=== PATIENT | female | born 1970 | race Hispanic/Latino ===

== ENCOUNTER 2017-07-26 12:54 | Emergency (ER) | payer MEDICAID ==
--- NOTE | 2017-07-26 14:31 | XRay Report ---
LEFT SHOULDER: Trauma, pain Routine views demonstrate normal bony and soft tissue structures with normal joint alignment of the shoulder. IMPRESSION: Normal study.
--- NOTE | 2017-07-26 17:17 | Emergency Department Report ---
Upper Extremity - HPI Chief Complaint: Shoulder Injury Stated Complaint: FALL .LEFT SHOULDER INJURY, TOE INJURY Time Seen by Provider: 07/26/17 17:16 Upper Extremity: Left Shoulder (shoulder pain from fall in 1 month ago) Occurred When: >5 Days (1 month) Mechanism: Fall Severity: moderate (6 out of 10) Symptoms: Yes Pain with Movement (left shoulder), Yes Limited Range of Movement (shoulder, left), No Deformity, No Numbness, No Weakness, No Swelling, No Bruising/Ecchymosis, No Laceration or Abrasion Other History: Patient reports that she has been having shoulder pain for one month since she fell and hit her left shoulder. She says she did not seek any medical care. Denies any numbness or tingling in or radiation of pain. Denies any fever or chills. She said it hurt when she moves her left shoulder. Denies any chest pain or shortness of breath. Blood pressure is elevated and she denies any history of high blood pressure. ED Review of Systems ROS: Stated complaint: FALL .LEFT SHOULDER INJURY, TOE INJURY Other details as noted in HPI Comment: All other systems reviewed and negative Constitutional: no symptoms reported Respiratory: no symptoms reported Cardiovascular: denies: chest pain, palpitations, edema, syncope Gastrointestinal: denies: abdominal pain, nausea Musculoskeletal: arthralgia. denies: back pain, joint swelling, myalgia Skin: denies: rash Neurological: denies: headache, weakness, numbness, paresthesias, confusion, abnormal gait, vertigo ED Past Medical Hx - Past Medical History Previous Medical History?: Yes Additional medical history: Vaginal delivery x 5 - Surgical History Past Surgical History?: Yes Additional Surgical History: Tubaligation - Family History Family history: no significant - Social History Smoking Status: Current Every Day Smoker Substance Use Type: Non Opiate Pain - Medications Home Medications: Home Medications Medication Instructions Recorded Confirmed Last Taken Type traMADol [Ultram] 50 mg PO Q6HR PRN #20 tablet 07/26/17 Unknown Rx Upper Extremity Exam - Exam General: Vital signs noted. No distress. Alert and acting appropriately. This is a 47-year-old female well-nourished well-developed in no acute distress Head and Torso: No HEENT Abnormality (Normal exam), No Neck Tenderness (Normal exam), No Chest/Lungs Abnormality (Normal exam), No Abdominal Tenderness ( Normal exam), No Back Tenderness (Normal exam) Shoulder Exam: Yes Normal Range of Motion in Shoulder (patient with full range of motion to both shoulders but she reports that it's painful to left shoulder with active range of motion), No Shoulder Tenderness, No Clavicle Tenderness, No Shoulder Deformity, No AC Joint Tenderness Arm Exam: No Arm/Humerus Tenderness, No Arm Deformity Elbow: Yes Normal Range of Motion in Elbow, No Elbow Tenderness, No Elbow Deformity Forearm: No Forearm Tenderness, No Forearm Deformity, No Pain with Pronation, No Pain with Supination Wrist: Yes Normal ROM in Wrist, No Wrist Tenderness, No Wrist Deformity, No Snuffbox Tenderness, No Pain with Axial Thumb Compression Hand: Yes Normal ROM in Digit(s), No Hand Tenderness, No Hand Deformity, No Digit Tenderness, No Digit(s) Deformity, No Tendon Dysfunction CMS Exam: Yes Normal Distal Pulses, Yes Normal Capillary Refill, Yes Normal Distal Sensation, No Broken Skin ED Course Vital Signs 07/26/17 13:45 Temperature 98.3 F Pulse Rate 100 H Respiratory 18 Rate Blood Pressure 188/106 O2 Sat by Pulse 99 Oximetry Vital Signs 07/26/17 07/26/17 13:45 18:26 Temperature 98.3 F Pulse Rate 100 H 84 Respiratory 18 Rate Blood Pressure 188/106 Blood Pressure 164/90 [Left] O2 Sat by Pulse 99 Oximetry - Reevaluation(s) Reevaluation #1: 07/26/17 18:32 Patient stable throughout ED stay. Blood pressure is better but still elevated. Patient remained asymptomatic. X-ray of left shoulder is normal ED Medical Decision Making - Radiology Data Radiology results: report reviewed X-ray left shoulder shows no acute bony abnormality. Critical care attestation.: If time is entered above; I have spent that time in minutes in the direct care of this critically ill patient, excluding procedure time. ED Disposition Clinical Impression: Arthralgia of left shoulder region, Elevated BP without diagnosis of hypertension Disposition: - TO HOME OR SELFCARE Is pt being admited?: No Does the pt Need Aspirin: No Condition: Stable Instructions: Arthralgia (ED), Heart Healthy Diet (ED), DASH Eating Plan (ED), Hypertension (ED) Additional Instructions: Please follow up with orthopedic Dr. Castaneda for further evaluation of left shoulder pain that has been ongoing for 1 month. You probably will be need an MRI to evaluate rotator cuff. Take Ultram as prescribed but please do not drive or arm. Heavy machinery while taking this medication as it causes drowsiness Your blood pressure was elevated in the emergency room today. Please keep a log a few blood pressure and record and take to primary care visit with you. Follow up with primary care in 5 days and if you do not have a primary care doctor he can follow up at [facility]. Please call and schedule an appointment. Prescriptions: traMADol [Ultram] 50 mg PO Q6HR PRN #20 tablet PRN Reason: Pain Referrals: KEYONA CASTANEDA MD [Staff Physician] - 07/28/17 [facility] [Outside] - 07/31/17 Forms: Work/School Release Form(ED)
[2017-07-26 18:27] VITALS: BP 164/90
== END 2017-07-26 19:35 | disposition home or self-care (01) ==
LOC: ED 12:54
DX: M25.512 Pain in left shoulder (principal); R03.0 Elevated blood-pressure reading, without diagnosis of hypertension; F17.200 Nicotine dependence, unspecified, uncomplicated

== ENCOUNTER 2017-12-21 10:03 | Emergency (ER) | payer MEDICAID ==
--- NOTE | 2017-12-21 12:15 | XRay Report ---
LEFT FOOT, 3 views: History: Injury, pain and swelling The bony architecture is intact. Bony alignment is normal. No soft tissue abnormalities are seen. The joint spaces appear preserved. IMPRESSION: Normal left foot.
--- NOTE | 2017-12-21 13:52 | Emergency Department Report ---
HPI - General Chief Complaint: Extremity Injury, Lower Time Seen by Provider: 12/21/17 12:48 - HPI HPI: Patient is a 47-year-old female who presents to ED complaining of left foot pain patient states Monday night she was going out her back door when she missed 2 steps and thinks she twisted her foot. Patient states she has been icing it at home and twisted in a Emery wrap. Patient states pain with certain movements of the foot. She denies hitting her head, loss of consciousness or falling ED Past Medical Hx - Past Medical History Previous Medical History?: No Additional medical history: Vaginal delivery x 5 - Surgical History Past Surgical History?: Yes Additional Surgical History: Tubaligation - Social History Smoking Status: Current Every Day Smoker Substance Use Type: Marijuana - Medications Home Medications: Home Medications Medication Instructions Recorded Confirmed Last Taken Type traMADol [Ultram] 50 mg PO Q6HR PRN #20 tablet 07/26/17 Unknown Rx Cyclobenzaprine [Flexeril] 10 mg PO TID PRN #20 tablet 12/21/17 Unknown Rx Naproxen [Naprosyn] 500 mg PO BID #20 tablet 12/21/17 Unknown Rx ED Review of Systems ROS: Stated complaint: LEFT FOOT PAIN Other details as noted in HPI Constitutional: denies: chills, fever Eyes: denies: eye pain, eye discharge, vision change ENT: denies: ear pain, throat pain Respiratory: denies: cough, shortness of breath, wheezing Cardiovascular: denies: chest pain, palpitations Endocrine: no symptoms reported Gastrointestinal: denies: abdominal pain, nausea, diarrhea Genitourinary: denies: urgency, dysuria, discharge Musculoskeletal: denies: back pain, joint swelling, arthralgia Skin: denies: rash, lesions Neurological: denies: headache, weakness, paresthesias Psychiatric: denies: anxiety, depression Hematological/Lymphatic: denies: easy bleeding, easy bruising Physical Exam - Physical Exam Vital Signs: Vital Signs 12/21/17 10:57 Temperature 98.4 F Pulse Rate 111 H Respiratory 12 Rate Blood Pressure 184/115 O2 Sat by Pulse 100 Oximetry Physical Exam: GENERAL: Alert and oriented x3, no apparent distress, Normal Gait, atraumatic. HEAD: Head is normocephalic and a-traumatic. LUNGS: Symetrical with respiration, No wheezing, no rales or crackles, CTAB. HEART: S1, S2 present, regular rate and rhythm without murmur, no rubs, no gallops. Non tender to palpation EXTREMITIES/MUSCULOSKELETAL: No cyanosis, clubbing, rash, lesions or edema. Full ROM bilaterally. pedal Pulses 2+ bilaterally. LE 5+ strength bilaterally , no swelling of the ankle or foot joint. Full range of motion of the left foot , no laceration, patient able to apply pressure to the foot without any pain. Mild tenderness to palpation of the anterior lateral aspect of the left foot NEUROLOGIC: The patient is cooperative with no focal neurologic deficits. Normal speech. Normal sensation in bilateral upper and lower extremities, No loss of sensation, SKIN: Warm and dry, No lesions, No ulceration or induration present. ED Course Vital Signs 12/21/17 10:57 Temperature 98.4 F Pulse Rate 111 H Respiratory 12 Rate Blood Pressure 184/115 O2 Sat by Pulse 100 Oximetry ED Medical Decision Making - Radiology Data Radiology results: report reviewed, image reviewed cc: ED DOC, MD Fluoro Time In Minutes: LEFT FOOT, 3 views: History: Injury, pain and swelling The bony architecture is intact. Bony alignment is normal. No soft tissue abnormalities are seen. The joint spaces appear preserved. IMPRESSION: Normal left foot. Transcribed By: TTR Dictated By: ALYSSA HERNADEZ JR, MD Electronically Authenticated By: ALYSSA HERNADEZ JR, MD Signed Date/Time: 12/21/17 1207 - Medical Decision Making 47-year-old female presents to ED with left foot sprain ED course: Patient received x-ray in ED. x-ray shows no abnormality normal x- ray findings I discussed his findings with the patient Vital signs are normal patient is in no acute distress. Blood pressure elevated while in ED. Patient denies any history of hypertension. She denies headache, blurry vision, chest pain or any other symptoms I scars with the patient and she is given need further management and assessment for diagnoses Discussed with patient follow-up with primary care physician. Discussed the patient and take medications as prescribed. Patient has no neurological deficit. Patient is alert and oriented 3 and understands all instructions given. I discussed the patient and she starts to experience any new or worsening onset of symptoms to return to ED immediately Discussed drowsiness effect of Flexeril makes her drowsy and not to operate machinery while taking flexeril Critical care attestation.: If time is entered above; I have spent that time in minutes in the direct care of this critically ill patient, excluding procedure time. ED Disposition Clinical Impression: Foot sprain Qualifiers: Encounter type: initial encounter Laterality: left Qualified Code(s): S93.602A - Unspecified sprain of left foot, initial encounter Strain of foot, left Qualifiers: Encounter type: initial encounter Qualified Code(s): S96.912A - Strain of unspecified muscle and tendon at ankle and foot level, left foot, initial encounter Disposition: TO HOME OR SELFCARE Is pt being admited?: No Does the pt Need Aspirin: No Condition: Stable Instructions: Arthralgia (ED), Ankle Exercises (GEN), RICE Therapy (ED) Additional Instructions: Make sure to follow up with the primary care physician as discussed. Take all your medications as you've been prescribed. If you have any worsening symptoms or develop new symptoms please return to ED immediately. Prescriptions: Cyclobenzaprine [Flexeril] 10 mg PO TID PRN #20 tablet PRN Reason: Muscle Spasm Naproxen [Naprosyn] 500 mg PO BID #20 tablet Referrals: PRIMARY CARE, [Primary Care Provider] - 3-5 Days Forms: Work/School Release Form(ED) Time of Disposition: 13:58
[2017-12-21 14:22] VITALS: BP 181/112
== END 2017-12-21 14:31 | disposition home or self-care (01) ==
LOC: ED 10:03
DX: S96.912A Strain of unspecified muscle and tendon at ankle and foot level, left foot, initial encounter (principal); S93.602A Unspecified sprain of left foot, initial encounter; F17.200 Nicotine dependence, unspecified, uncomplicated; X58.XXXA Exposure to other specified factors, initial encounter; Y93.89 Activity, other specified; Y92.89 Other specified places as the place of occurrence of the external cause; Y99.8 Other external cause status

== ENCOUNTER 2020-04-22 13:10 | Emergency (ER) | payer SELFPAY ==
[2020-04-22 14:35] LABS: Basophils # (Auto) 0.1 K/mm3 (0.0-0.1); Basophils % (Auto) 0.4 % (0.0-1.8); Eosinophils % (Auto) 0.2 % (0.0-4.3); Hematocrit 43.7 % (30.3-42.9); Hemoglobin 14.9 gm/dl (10.1-14.3); Lymphocytes # (Auto) 1.5 K/mm3 (1.2-5.4); Lymphocytes % (Auto) 10.5 % (13.4-35.0); Mean Corpuscular HGB Conc 34 % (30-34); Mean Corpuscular Volume 90 fl (79-97); Monocytes # (Auto) 0.6 K/mm3 (0.0-0.8); Monocytes % (Auto) 4.5 % (0.0-7.3); Platelet Count 279 K/mm3 (140-440); Red Blood Count 4.85 M/mm3 (3.65-5.03)
[2020-04-22 14:53] LABS: BUN/Creatinine Ratio 23; Blood Urea Nitrogen 16 mg/dL (7-17); Calcium 9.8 mg/dL (8.4-10.2); Hemolysis Index 14
--- NOTE | 2020-04-22 15:03 | Emergency Department Report ---
Blank Doc - Documentation Documentation: 50-year-old female that presents with chest pain and SOB. Stated has radiation to left arm. This initial assessment/diagnostic orders/clinical plan/treatment(s) is/are subject to change based on patient's health status, clinical progression and re- assessment by fellow clinical providers in the ED. Further treatment and workup at subsequent clinical providers discretion. Patient/guardians urged not to elope from the ED as their condition may be serious if not clinically assessed and managed. Initial orders include: 1- Patient sent to MAIN ED for further evaluation and treatment 2- cardiac work up
[2020-04-22 15:40] LABS: Alanine Aminotransferase 11 units/L (7-56); Albumin 4.2 g/dL (3.9-5)
[2020-04-22 15:44] LABS: Bilirubin,Direct < 0.2 mg/dL (0-0.2)
[2020-04-22 15:52] LABS: Partial Thromboplastin Time 23.6 Sec. (24.2-36.6)
--- NOTE | 2020-04-22 15:52 | XRay Report ---
CHEST 2 VIEWS INDICATION / CLINICAL INFORMATION: Chest Pain. COMPARISON: None available. FINDINGS: SUPPORT DEVICES: None. HEART / MEDIASTINUM: No significant abnormality. LUNGS / PLEURA: No significant pulmonary or pleural abnormality. No pneumothorax. ADDITIONAL FINDINGS: No significant additional findings. IMPRESSION: 1. No acute findings. Signer Name: Blaire Delcid MD Signed: 04/22/2020 3:48 PM Workstation Name: [id number]
[2020-04-22 15:56] LABS: INR 0.93 (0.87-1.13)
--- NOTE | 2020-04-22 20:49 | Emergency Department Report ---
ED Chest Pain HPI - General Chief Complaint: Chest Pain Stated Complaint: CP Time Seen by Provider: 04/22/20 15:02 Source: patient, EMS Mode of arrival: Ambulatory Limitations: No Limitations - History of Present Illness Initial Comments: 50-year-old female with no significant past medical history presents emergency department complaining left-sided chest pain of an unknown etiology. Chest pain started at 5 AM this morning and radiated down her left arm. She called EMS this afternoon they gave HER-2 nitroglycerin and aspirin she reports complete resolution of her chest pain. She reports no palliative or provocative factors that she states her chest pain was already improving at the time that the nitro was provided. Pain Radiation: none Severity scale (0 -10): 0 Consistency: constant Improves With: nothing Worsens With: nothing re: nausea Treatments Prior to Arrival: none - Related Data Previous Rx's Medication Instructions Recorded Last Taken Type traMADoL [Ultram] 50 mg PO Q6HR PRN #20 tablet 07/26/17 Unknown Rx Cyclobenzaprine [Flexeril] 10 mg PO TID PRN #20 tablet 12/21/17 Unknown Rx Naproxen [Naprosyn] 500 mg PO BID #20 tablet 12/21/17 Unknown Rx Allergies Allergy/AdvReac Type Severity Reaction Status Date / Time No Known Allergies Allergy Verified 04/22/20 13:12 Heart Score - HEART Score History: Slightly suspicious EKG: Normal Age: 45-65 Risk factors: No known risk factors Troponin: < normal limit HEART Score: 1 ED Review of Systems ROS: Stated complaint: CP Other details as noted in HPI Constitutional: denies: chills, fever Eyes: denies: eye pain, eye discharge, vision change ENT: denies: ear pain, throat pain Respiratory: denies: cough, shortness of breath, wheezing Cardiovascular: chest pain. denies: palpitations Endocrine: no symptoms reported Gastrointestinal: denies: abdominal pain, nausea, diarrhea Genitourinary: denies: urgency, dysuria, discharge Musculoskeletal: denies: back pain, joint swelling, arthralgia Skin: denies: rash, lesions Neurological: denies: headache, weakness, paresthesias Psychiatric: denies: anxiety, depression Hematological/Lymphatic: denies: easy bleeding, easy bruising ED Past Medical Hx - Past Medical History Previous Medical History?: No Additional medical history: Vaginal delivery x 5 - Surgical History Past Surgical History?: Yes Additional Surgical History: Tubaligation - Social History Smoking Status: Current Every Day Smoker Substance Use Type: None - Medications Home Medications: Home Medications Medication Instructions Recorded Confirmed Last Taken Type traMADoL [Ultram] 50 mg PO Q6HR PRN #20 tablet 07/26/17 Unknown Rx Cyclobenzaprine [Flexeril] 10 mg PO TID PRN #20 tablet 12/21/17 Unknown Rx Naproxen [Naprosyn] 500 mg PO BID #20 tablet 12/21/17 Unknown Rx ED Physical Exam - General Limitations: No Limitations General appearance: alert, in no apparent distress - Head Head exam: Present: atraumatic, normocephalic - Eye Eye exam: Present: normal appearance, PERRL, EOMI Pupils: Present: normal accommodation - ENT ENT exam: Present: normal exam, normal orophraynx, mucous membranes moist - Neck Neck exam: Present: normal inspection - Respiratory Respiratory exam: Present: normal lung sounds bilaterally. Absent: respiratory distress, chest wall tenderness, accessory muscle use, other - Cardiovascular Cardiovascular Exam: Present: regular rate, normal rhythm. Absent: systolic murmur, diastolic murmur, rubs, gallop - GI/Abdominal GI/Abdominal exam: Present: soft, normal bowel sounds - Extremities Exam Extremities exam: Present: normal inspection - Back Exam Back exam: Present: normal inspection - Neurological Exam Neurological exam: Present: alert, oriented X3 - Psychiatric Psychiatric exam: Present: normal affect, normal mood - Skin Skin exam: Present: warm, dry, intact, normal color. Absent: rash ED Course Vital Signs 04/22/20 04/22/20 13:12 17:48 Temperature 97.8 F 98.4 F Pulse Rate 103 H 101 H Respiratory 100 H 20 Rate Blood Pressure 175/107 159/114 O2 Sat by Pulse 100 Oximetry - Consultations Consultation #1: 04/22/20 21:12 Discussed case with the attending Dr. oGvea whom agrees need to follow-up with the [facility] JAMES score - James Score Age > 65: (0) No Aspirin use within the Past 7 Days: (0) No 3 or more CAD Risk Factors: (0) No 2 or more Angina events in past 24 hrs: (0) No Known CAD with more than 50% Stenosis: (0) No Elevated Cardiac Markers: (0) No ST Deviation Greater than 0.5mm: (0) No JAMES Score: 0 ED Medical Decision Making - Lab Data Result diagrams: 04/22/20 14:18 04/22/20 14:18 - EKG Data EKG shows normal: sinus rhythm Rate: normal - EKG Data When compared to previous EKG there are: no significant change - Radiology Data Radiology results: report reviewed Referring Physician:WES CHARLESPatient Name:SISSY FAJARDOPatient ID:[id number] of :[id number]:FemaleAccession:[id number] Date:[id number] Status:Finalized Findings [facility] [address] [place] [address] XRay Report Signed Patient: SISSY FAJARDO MR#: [id number] : 1970 Acct:[id number] Age/Sex: 50 / F ADM Date: 04/22/20 Loc: ED Attending Dr: Ordering Physician: WES CHARLES NP Date of Service: 04/22/20 Procedure(s): XR chest routine 2V Accession Number(s): [id number] cc: WES CHARLES NP Fluoro Time In Minutes: CHEST 2 VIEWS INDICATION / CLINICAL INFORMATION: Chest Pain. COMPARISON: None available. FINDINGS: SUPPORT DEVICES: None. HEART / MEDIASTINUM: No significant abnormality. LUNGS / PLEURA: No significant pulmonary or pleural abnormality. No pneumothorax. ADDITIONAL FINDINGS: No significant additional findings. IMPRESSION: 1. No acute findings. Signer Name: Blaire Delcid MD Signed: 04/22/2020 3:48 PM Workstation Name: [id number] Transcribed By: Dictated By: Blaire Delcid MD Electronically Authenticated By: Blaire Delcid MD Signed Date/Time: 04/22/20 1548 DD/ 46 TD/TT: - Medical Decision Making This patient presents with chest pain that is very unlikely angina or acute coronary syndrome. The emergency department evaluation has not identified any cause for suspicion that this chest pain has a cardiac etiology. Based on their history, EKG (which showed no evidence of ischemia or infarction) and imaging, in addition to the patient's physical exam, I see no evidence at this time for a malignant etiology for the patient's chest pain. There is no acute evidence for pulmonary embolus, acute myocardial infarction, pneumothorax, Boerhaeve syndrome, cardiac tamponade, thoracic artery dissection, or any other emergent cardiac, pulmonary or aortic pathology. Given the low pre-test probability for cardiac etiology of chest pain and the absence of any sign of ischemia or infarction, discharge for outpatient follow-up and further evaluation is reasonable. I have explained to the patient that even though a cardiac problem is very unlikely, follow-up and further testing is required to reduce further the already small uncertainty that exists. Other life-threatening diagnoses have been considered. The patient understands the need to return immediately if their symptoms worsen or they develop any new symptoms, and not to engage in any significant exertional activity until follow-up is obtained. Ms. Wilcox will be referred to the [facility] fascia will be faxed over by the classroom assistant Santana Critical care attestation.: If time is entered above; I have spent that time in minutes in the direct care of this critically ill patient, excluding procedure time. ED Disposition Clinical Impression: Chest pain Disposition: DC-01 TO HOME OR SELFCARE Is pt being admited?: No Does the pt Need Aspirin: No Condition: Stable Instructions: Chest Pain (ED), Exercise Stress Echocardiography (ED) Additional Instructions: Please await your phone call from the [facility] for follow-up as we discussed that you need an exercise stress test and evaluation by cardiology Referrals: PRIMARY CARE, [Primary Care Provider] - 3-5 Days [facility] [Provider Group] - 3-5 Days
[2020-04-23 00:48] VITALS: BP 176/112
== END 2020-04-22 21:55 | disposition home or self-care (01) ==
LOC: ED 13:10
DX: R07.9 Chest pain, unspecified (principal); F17.200 Nicotine dependence, unspecified, uncomplicated; Z79.899 Other long term (current) drug therapy; Z98.51 Tubal ligation status
CPT/HCPCS: 36415; 71046; 80048; 80076; 83690; 83735; 84484; 85025; 85610; 85730; 93005